=== PATIENT | male | born 1945 | race African-American/Black ===

== ENCOUNTER 2021-11-20 09:48 | Inpatient (IN) | payer OTHER ==
[2021-11-20 11:26] LABS: BASO % 1.1 % (0-2.0); EOS % 1.5 % (0-4.5); HEMATOCRIT 41.5 % (35.4-49); HEMOGLOBIN 13.8 GM/dL (11.7-16.9); LYMPH % 15.8 % (8-40); MCH 29.8 pg (25.7-33.7); MCHC 33.3 g/dl (32.0-35.9); MEAN CELL VOLUME 89.5 fl (80-96); MEAN PLT VOLUME 9.1 fl (7.5-11.1); MONO % 8.6 % (3.8-10.2); PLATELET COUNT 158 10^3/uL (134-434); RBC 4.64 M/mm3 (4.00-5.60); RDW 15.4 % (11.9-15.9); WHITE BLOOD COUNT 3.6 K/mm3 (4.0-10.0)
[2021-11-20 11:40] LABS: CHLORIDE 106 mmol/L (98-107); SODIUM 144 mmol/L (136-145)
[2021-11-20 11:44] LABS: ANION GAP 7 MMOL/L (8-16); BLOOD UREA NITROGEN 16.8 mg/dL (7-18); CALCIUM 8.9 mg/dL (8.5-10.1); CO2 31 mmol/L (21-32); GLUCOSE,RANDOM 126 mg/dL (74-106)
[2021-11-20 11:45] LABS: MAGNESIUM 2.1 mg/dL (1.8-2.4)
[2021-11-20 11:47] LABS: CREATININE 1.5 mg/dL (0.55-1.3); PHOSPHOROUS 3.5 mg/dL (2.5-4.9); SGPT/ALT 42 U/L (13-61)
[2021-11-20 11:48] LABS: SGOT/AST 27 U/L (15-37)
[2021-11-20 11:49] LABS: BILIRUBIN,TOTAL 0.5 mg/dL (0.2-1); TOT PROT 7.4 g/dl (6.4-8.2)
[2021-11-20 11:50] LABS: ALK PHOS 90 U/L (45-117)
[2021-11-20 12:22] LABS: EPI CELLS 6 /uL (0-25.1); HYALINE CASTS 1 /uL (0-3.1); PH,URINE 6.5 (5.0-8.0); URINE APPEARANCE CLEAR; URINE BACTERIA 11 /uL (0-1359); URINE BILIRUBIN NEGATIVE (NEGATIVE); URINE COLOR YELLOW; URINE GLUCOSE (UA) NEGATIVE (NEGATIVE); URINE KETONE NEGATIVE (NEGATIVE); URINE LEUK ESTERASE NEGATIVE (NEGATIVE); URINE NITRITE NEGATIVE (NEGATIVE); URINE PROTEIN 1+ (NEGATIVE); URINE RBC 15 /uL (0-23.9); URINE UROBILINOGEN 0.2 mg/dL (0.2-1.0); URINE WBC 7 /uL (0-25.8)
[2021-11-20] MEDS ORDERED: ASPIRIN 81 MG CHEWABLE TABLETS PO ONE (12:39)
[2021-11-20] MEDS ORDERED: ASPIRIN 81 MG CHEWABLE TABLETS ONE (13:00)
[2021-11-20] MEDS ORDERED: POTASSIUM CHLORIDE ORAL LIQUID 20 MEQ/15 ML PO ONE (14:18)
[2021-11-20] MEDS ORDERED: POTASSIUM CHLORIDE ORAL LIQUID 20 MEQ/15 ML ONE (14:42)
[2021-11-21] MEDS ORDERED: HEPARIN NA (PORCINE) 5,000 UNITS/ML 1ML VIAL ONE ×3 (00:55→13:14)
[2021-11-21] MEDS ORDERED: ATORVASTATIN CA 10 MG TABLET (FP) ONE (00:55)
[2021-11-21] MEDS: HEPARIN NA (PORCINE) 5,000 UNITS/ML 1ML VIAL SQ SCH ×4 (01:28→22:17)
[2021-11-21] MEDS: ATORVASTATIN CA 10 MG TABLET (FP) PO SCH ×2 (01:28→22:17)
[2021-11-21] MEDS ORDERED: ACETAMINOPHEN 325 MG TABLET (FP) ONE (06:47)
[2021-11-21] MEDS: ACETAMINOPHEN 325 MG TABLET (FP) PO PRN ×2 (06:50→22:17)
[2021-11-21 09:12] LABS: BASO % 0.3 % (0-2.0); HEMATOCRIT 36.7 % (35.4-49); HEMOGLOBIN 12.4 GM/dL (11.7-16.9); LYMPH % 8.9 % (8-40); MCHC 33.9 g/dl (32.0-35.9); MEAN CELL VOLUME 88.5 fl (80-96); MEAN PLT VOLUME 9.7 fl (7.5-11.1); MONO % 6.2 % (3.8-10.2); NEUT % 83.6 % (42.8-82.8); PLATELET COUNT 154 10^3/uL (134-434); RBC 4.14 M/mm3 (4.00-5.60); RDW 14.9 % (11.9-15.9); WHITE BLOOD COUNT 4.9 K/mm3 (4.0-10.0)
[2021-11-21 09:23] LABS: ALBUMIN 3.6 g/dl (3.4-5.0); BLOOD UREA NITROGEN 15.4 mg/dL (7-18); CALCIUM 8.1 mg/dL (8.5-10.1)
[2021-11-21 09:26] LABS: CREATININE 1.2 mg/dL (0.55-1.3)
[2021-11-21 09:28] LABS: BILIRUBIN,TOTAL 0.8 mg/dL (0.2-1); TOT PROT 6.7 g/dl (6.4-8.2)
[2021-11-21 09:29] LABS: CHOLESTEROL 151 mg/dL (50-200)
[2021-11-21 09:30] LABS: LDL CHOLESTEROL (ONLY SJRH) 82 mg/dL (5-100); TRIGLYCERIDES 154 mg/dL (0-150)
[2021-11-21 09:33] LABS: HDL CHOLESTEROL 31 mg/dL (40-60)
[2021-11-21] MEDS ORDERED: POTASSIUM CHLORIDE ORAL LIQUID 20 MEQ/15 ML PO ONE (13:24)
[2021-11-21] MEDS ORDERED: POTASSIUM CHLORIDE ORAL LIQUID 20 MEQ/15 ML ONE (13:51)
[2021-11-21] MEDS ORDERED: POTASSIUM CHLORIDE TABS 20 MEQ TABLET.ER (FP) PO ONE (16:45)
[2021-11-22] MEDS: HEPARIN NA (PORCINE) 5,000 UNITS/ML 1ML VIAL SQ SCH ×3 (05:45→21:26)
[2021-11-22] MEDS: ACETAMINOPHEN 325 MG TABLET (FP) PO PRN ×2 (05:46→09:58)
[2021-11-22 08:58] LABS: BASO % 0.3 % (0-2.0); HEMATOCRIT 37.9 % (35.4-49); HEMOGLOBIN 12.6 GM/dL (11.7-16.9); LYMPH % 10.3 % (8-40); MCH 29.7 pg (25.7-33.7); MCHC 33.2 g/dl (32.0-35.9); MEAN CELL VOLUME 89.6 fl (80-96); MONO % 4.1 % (3.8-10.2); NEUT % 84.3 % (42.8-82.8); PLATELET COUNT 156 10^3/uL (134-434); RBC 4.23 M/mm3 (4.00-5.60); RDW 15.1 % (11.9-15.9); WHITE BLOOD COUNT 5.9 K/mm3 (4.0-10.0)
[2021-11-22 09:19] LABS: CALCIUM 8.5 mg/dL (8.5-10.1)
[2021-11-22 09:23] LABS: BLOOD UREA NITROGEN 16.6 mg/dL (7-18)
[2021-11-22] MEDS ORDERED: POTASSIUM CHLORIDE TABS 20 MEQ TABLET.ER (FP) PO ONE (11:29)
[2021-11-22] MEDS: KCL 10 MEQ IVPB 10 MEQ/100 ML INFUS.BAG IVPB SCH ×3 (12:07→14:44)
[2021-11-22] MEDS: ATORVASTATIN CA 10 MG TABLET (FP) PO SCH (21:26)
[2021-11-23] MEDS: ACETAMINOPHEN 325 MG TABLET (FP) PO PRN ×2 (02:16→08:47)
[2021-11-23] MEDS: HEPARIN NA (PORCINE) 5,000 UNITS/ML 1ML VIAL SQ SCH ×3 (05:54→21:10)
[2021-11-23 08:35] LABS: BASO % 0.3 % (0-2.0); EOS % 3.3 % (0-4.5); HEMATOCRIT 37.8 % (35.4-49); HEMOGLOBIN 12.6 GM/dL (11.7-16.9); LYMPH % 16.1 % (8-40); MCH 29.8 pg (25.7-33.7); MCHC 33.3 g/dl (32.0-35.9); MEAN CELL VOLUME 89.4 fl (80-96); MEAN PLT VOLUME 9.3 fl (7.5-11.1); MONO % 5.8 % (3.8-10.2); NEUT % 74.5 % (42.8-82.8); PLATELET COUNT 130 10^3/uL (134-434); RBC 4.23 M/mm3 (4.00-5.60); WHITE BLOOD COUNT 4.4 K/mm3 (4.0-10.0)
[2021-11-23 09:02] LABS: ALBUMIN 3.4 g/dl (3.4-5.0); CALCIUM 8.4 mg/dL (8.5-10.1)
[2021-11-23 09:05] LABS: CREATININE 1.2 mg/dL (0.55-1.3)
[2021-11-23 09:07] LABS: BILIRUBIN,TOTAL 1.2 mg/dL (0.2-1); TOT PROT 6.5 g/dl (6.4-8.2)
[2021-11-23] MEDS ORDERED: LOSARTAN POTASSIUM 25 MG TABLET PO ONE (12:11)
[2021-11-23] MEDS: ASPIRIN 81 MG CHEWABLE TABLETS PO SCH (12:32)
[2021-11-23] MEDS: ATORVASTATIN CA 10 MG TABLET (FP) PO SCH (21:10)
[2021-11-24] MEDS: HEPARIN NA (PORCINE) 5,000 UNITS/ML 1ML VIAL SQ SCH ×3 (05:18→21:30)
[2021-11-24 07:18] LABS: BASO % 0.4 % (0-2.0); EOS % 4.1 % (0-4.5); HEMOGLOBIN 12.8 GM/dL (11.7-16.9); MCH 29.8 pg (25.7-33.7); MCHC 33.6 g/dl (32.0-35.9); MEAN CELL VOLUME 88.7 fl (80-96); MEAN PLT VOLUME 10.1 fl (7.5-11.1); MONO % 8.1 % (3.8-10.2); NEUT % 70.4 % (42.8-82.8); PLATELET COUNT 138 10^3/uL (134-434); RBC 4.29 M/mm3 (4.00-5.60); WHITE BLOOD COUNT 3.6 K/mm3 (4.0-10.0)
[2021-11-24 07:35] LABS: CALCIUM 8.3 mg/dL (8.5-10.1)
[2021-11-24 07:36] LABS: BLOOD UREA NITROGEN 16.8 mg/dL (7-18)
[2021-11-24 07:39] LABS: CREATININE 1.2 mg/dL (0.55-1.3)
[2021-11-24] MEDS: ACETAMINOPHEN 325 MG TABLET (FP) PO PRN (09:19)
[2021-11-24] MEDS: CARVEDILOL 3.125 MG TABLET (FP) PO SCH ×2 (09:19→21:30)
[2021-11-24] MEDS: ASPIRIN 81 MG CHEWABLE TABLETS PO SCH (09:19)
[2021-11-24] MEDS ORDERED: POTASSIUM CHLORIDE TABS 20 MEQ TABLET.ER (FP) PO ONE (11:14)
[2021-11-24] MEDS: DEXAMETHASONE 4 MG TABLET (FP) PO SCH (11:32)
[2021-11-24 11:59] LABS: MAGNESIUM 1.9 mg/dL (1.8-2.4)
[2021-11-24 12:03] LABS: PHOSPHOROUS 2.9 mg/dL (2.5-4.9)
[2021-11-24] MEDS ORDERED: REMDESIVIR 100 MG in SODIUM CHLORIDE 250 ML IVPB SCH (14:00)
[2021-11-24] MEDS ORDERED: REMDESIVIR 200 MG in SODIUM CHLORIDE 250 ML IVPB ONE (14:00)
[2021-11-24] MEDS: ATORVASTATIN CA 10 MG TABLET (FP) PO SCH (21:30)
[2021-11-25] MEDS: HEPARIN NA (PORCINE) 5,000 UNITS/ML 1ML VIAL SQ SCH ×4 (06:03→21:46)
[2021-11-25] MEDS: ASPIRIN 81 MG CHEWABLE TABLETS PO SCH (10:13)
[2021-11-25] MEDS: CARVEDILOL 3.125 MG TABLET (FP) PO SCH ×2 (10:13→21:46)
[2021-11-25] MEDS: DEXAMETHASONE 4 MG TABLET (FP) PO SCH (10:14)
[2021-11-25 12:56] LABS: BASO % 0.4 % (0-2.0); EOS % 0.1 % (0-4.5); HEMATOCRIT 37.1 % (35.4-49); HEMOGLOBIN 12.3 GM/dL (11.7-16.9); LYMPH % 18.7 % (8-40); MCH 29.5 pg (25.7-33.7); MCHC 33.2 g/dl (32.0-35.9); MEAN CELL VOLUME 88.9 fl (80-96); MEAN PLT VOLUME 10.7 fl (7.5-11.1); MONO % 11.7 % (3.8-10.2); NEUT % 69.1 % (42.8-82.8); PLATELET COUNT 163 10^3/uL (134-434); RBC 4.17 M/mm3 (4.00-5.60); RDW 15.2 % (11.9-15.9); WHITE BLOOD COUNT 4.2 K/mm3 (4.0-10.0)
[2021-11-25 13:24] LABS: CALCIUM 8.7 mg/dL (8.5-10.1)
[2021-11-25 13:25] LABS: BLOOD UREA NITROGEN 28.8 mg/dL (7-18)
[2021-11-25] MEDS ORDERED: ACETAMINOPHEN 325 MG TABLET (FP) PO PRN (14:09)
[2021-11-25] MEDS: REMDESIVIR 100 MG in SODIUM CHLORIDE 250 ML IVPB SCH (15:32)
[2021-11-25 17:59] LABS: CREATININE 1.3 mg/dL (0.55-1.3)
[2021-11-25] MEDS: ATORVASTATIN CA 10 MG TABLET (FP) PO SCH (21:46)
[2021-11-25] MEDS ORDERED: HEPARIN NA (PORCINE) 5,000 UNITS/ML 1ML VIAL SQ SCH (22:00)
[2021-11-26] MEDS: HEPARIN NA (PORCINE) 5,000 UNITS/ML 1ML VIAL SQ SCH ×3 (06:40→21:22)
[2021-11-26 10:38] LABS: BASO % 0.2 % (0-2.0); HEMATOCRIT 36.5 % (35.4-49); HEMOGLOBIN 12.6 GM/dL (11.7-16.9); MCH 30.7 pg (25.7-33.7); MCHC 34.6 g/dl (32.0-35.9); MEAN CELL VOLUME 88.8 fl (80-96); MEAN PLT VOLUME 10.1 fl (7.5-11.1); MONO % 8.5 % (3.8-10.2); NEUT % 77.3 % (42.8-82.8); PLATELET COUNT 191 10^3/uL (134-434); RBC 4.11 M/mm3 (4.00-5.60); RDW 15.3 % (11.9-15.9); WHITE BLOOD COUNT 6.1 K/mm3 (4.0-10.0)
[2021-11-26 11:09] LABS: CALCIUM 8.5 mg/dL (8.5-10.1)
[2021-11-26 11:10] LABS: BLOOD UREA NITROGEN 30.4 mg/dL (7-18)
[2021-11-26 11:13] LABS: CREATININE 1.2 mg/dL (0.55-1.3)
[2021-11-26] MEDS: CARVEDILOL 3.125 MG TABLET (FP) PO SCH ×2 (11:59→21:22)
[2021-11-26] MEDS: ASPIRIN 81 MG CHEWABLE TABLETS PO SCH (11:59)
[2021-11-26] MEDS: DEXAMETHASONE 4 MG TABLET (FP) PO SCH (12:00)
[2021-11-26] MEDS: REMDESIVIR 100 MG in SODIUM CHLORIDE 250 ML IVPB SCH (15:58)
[2021-11-26] MEDS: ATORVASTATIN CA 10 MG TABLET (FP) PO SCH (21:23)
[2021-11-27] MEDS: HEPARIN NA (PORCINE) 5,000 UNITS/ML 1ML VIAL SQ SCH ×3 (05:26→21:12)
[2021-11-27] MEDS: ASPIRIN 81 MG CHEWABLE TABLETS PO SCH (09:07)
[2021-11-27] MEDS: DEXAMETHASONE 4 MG TABLET (FP) PO SCH (09:07)
[2021-11-27] MEDS: CARVEDILOL 3.125 MG TABLET (FP) PO SCH ×2 (09:08→21:21)
[2021-11-27] MEDS: LOSARTAN POTASSIUM 25 MG TABLET PO SCH ×2 (11:00→11:58)
[2021-11-27] MEDS: REMDESIVIR 100 MG in SODIUM CHLORIDE 250 ML IVPB SCH (14:01)
[2021-11-27] MEDS: ATORVASTATIN CA 10 MG TABLET (FP) PO SCH (21:12)
[2021-11-28] MEDS: HEPARIN NA (PORCINE) 5,000 UNITS/ML 1ML VIAL SQ SCH ×3 (05:26→21:30)
[2021-11-28 09:06] VITALS: BMI 22.4
[2021-11-28] MEDS: DEXAMETHASONE 4 MG TABLET (FP) PO SCH (09:29)
[2021-11-28] MEDS: LOSARTAN POTASSIUM 25 MG TABLET PO SCH (09:29)
[2021-11-28] MEDS: ASPIRIN 81 MG CHEWABLE TABLETS PO SCH (09:29)
[2021-11-28] MEDS: CARVEDILOL 3.125 MG TABLET (FP) PO SCH ×2 (09:30→21:32)
[2021-11-28] MEDS: REMDESIVIR 100 MG in SODIUM CHLORIDE 250 ML IVPB SCH (14:15)
[2021-11-28] MEDS: ATORVASTATIN CA 10 MG TABLET (FP) PO SCH (21:31)
[2021-11-29] MEDS: HEPARIN NA (PORCINE) 5,000 UNITS/ML 1ML VIAL SQ SCH ×3 (05:24→22:18)
[2021-11-29] MEDS: ASPIRIN 81 MG CHEWABLE TABLETS PO SCH (09:50)
[2021-11-29] MEDS: DEXAMETHASONE 4 MG TABLET (FP) PO SCH (09:50)
[2021-11-29] MEDS: LOSARTAN POTASSIUM 25 MG TABLET PO SCH (09:50)
[2021-11-29] MEDS: CARVEDILOL 3.125 MG TABLET (FP) PO SCH ×2 (09:55→22:18)
[2021-11-29 11:46] LABS: BASO % 0.3 % (0-2.0); EOS % 0.5 % (0-4.5); HEMATOCRIT 36.5 % (35.4-49); HEMOGLOBIN 12.8 GM/dL (11.7-16.9); LYMPH % 18.5 % (8-40); MCHC 34.9 g/dl (32.0-35.9); MEAN CELL VOLUME 88.8 fl (80-96); MEAN PLT VOLUME 10.3 fl (7.5-11.1); MONO % 12.5 % (3.8-10.2); NEUT % 68.2 % (42.8-82.8); PLATELET COUNT 255 10^3/uL (134-434); RBC 4.11 M/mm3 (4.00-5.60); WHITE BLOOD COUNT 8.4 K/mm3 (4.0-10.0)
[2021-11-29 12:01] LABS: CALCIUM 8.9 mg/dL (8.5-10.1)
[2021-11-29 12:02] LABS: BLOOD UREA NITROGEN 27.3 mg/dL (7-18)
[2021-11-29 12:05] LABS: CREATININE 1.2 mg/dL (0.55-1.3)
[2021-11-29] MEDS: ATORVASTATIN CA 10 MG TABLET (FP) PO SCH (22:18)
[2021-11-30 01:46] VITALS: TEMP 97.8
[2021-11-30] MEDS: HEPARIN NA (PORCINE) 5,000 UNITS/ML 1ML VIAL SQ SCH (05:26)
[2021-11-30 05:43] VITALS: BP 165/77; PULSE 48; RESP 18
[2021-11-30] MEDS: LOSARTAN POTASSIUM 25 MG TABLET PO SCH (09:54)
[2021-11-30] MEDS: DEXAMETHASONE 4 MG TABLET (FP) PO SCH (09:54)
[2021-11-30] MEDS: ASPIRIN 81 MG CHEWABLE TABLETS PO SCH (09:54)
[2021-11-30] MEDS: CARVEDILOL 3.125 MG TABLET (FP) PO SCH (09:55)
== END 2021-11-30 11:36 | disposition home or self-care (01) | DRG 178 ==
LOC: JER 09:48 → JERBED 16:52 → J4S 11-21 22:11 → OBSVTOIN 11-24 16:31 → J5S 11-25 13:13
PROVIDERS: ADMIT Internal Medicine; ATTEND Internal Medicine
PROC: XW033E5 Introduction of Remdesivir Anti-infective into Peripheral Vein, Percutaneous Approach, New Technology Group 5 (ICD-10-PCS; principal; 2021-11-29)
DX: U07.1 COVID-19 (principal); I24.8 Other forms of acute ischemic heart disease; D69.6 Thrombocytopenia, unspecified; I11.9 Hypertensive heart disease without heart failure; I08.1 Rheumatic disorders of both mitral and tricuspid valves; E78.5 Hyperlipidemia, unspecified; E78.00 Pure hypercholesterolemia, unspecified; I25.10 Atherosclerotic heart disease of native coronary artery without angina pectoris; N40.0 Benign prostatic hyperplasia without lower urinary tract symptoms; E87.6 Hypokalemia
CPT/HCPCS: 36415; 70450-TC; 71045-TC-FY; 71046-TC-FY; 80048; 80053; 80061; 81003; 82962; 83036; 83735; 83880; 84100; 84443; 84484; 85025; 86140; 87086; 93005; 93010; 93306-TC; 93880-TC; 94761; 97116-GP; 97161-GP; 99285-25; C9399; C9803-CS; G0378; J1644; U0003; U0005

== ENCOUNTER 2021-12-12 19:49 | Observation (INO) | payer OTHER ==
[2021-12-12 19:53] VITALS: BMI 29.1
[2021-12-12 22:45] LABS: INR 1.1 (0.83-1.09); PROTHROMBIN TIME (PATIENT) 12.7 SEC (9.7-13.0)
[2021-12-12 22:51] LABS: BASO % 0.3 % (0-2.0); HEMATOCRIT 37.1 % (35.4-49); HEMOGLOBIN 12.7 GM/dL (11.7-16.9); LYMPH % 14.4 % (8-40); MCH 31.1 pg (25.7-33.7); MCHC 34.3 g/dl (32.0-35.9); MEAN CELL VOLUME 90.6 fl (80-96); MEAN PLT VOLUME 8.9 fl (7.5-11.1); MONO % 12.1 % (3.8-10.2); NEUT % 68.2 % (42.8-82.8); PLATELET COUNT 166 10^3/uL (134-434); RBC 4.09 M/mm3 (4.00-5.60); RDW 15.4 % (11.9-15.9); WHITE BLOOD COUNT 4.7 K/mm3 (4.0-10.0)
[2021-12-12] MEDS ORDERED: MAGNESIUM SULF 50% (8.12 MEQ/2 ML-1 GM VIAL) IVPB ONE (22:54)
[2021-12-12 22:55] LABS: ALBUMIN 3.4 g/dl (3.4-5.0); BLOOD UREA NITROGEN 23.7 mg/dL (7-18)
[2021-12-12 22:58] LABS: CREATININE 1.4 mg/dL (0.55-1.3)
[2021-12-12 23:00] LABS: BILIRUBIN,TOTAL 0.4 mg/dL (0.2-1); TOT PROT 6.1 g/dl (6.4-8.2)
[2021-12-12] MEDS ORDERED: MAGNESIUM SULFATE IN WATER 2 GM/50 ML IVPB IVPB ONE (23:31)
[2021-12-13 00:59] LABS: PH,URINE 6.5 (5.0-8.0); URINE APPEARANCE CLEAR; URINE BILIRUBIN NEGATIVE (NEGATIVE); URINE COLOR YELLOW; URINE GLUCOSE (UA) NEGATIVE (NEGATIVE); URINE KETONE NEGATIVE (NEGATIVE); URINE LEUK ESTERASE NEGATIVE (NEGATIVE); URINE NITRITE NEGATIVE (NEGATIVE); URINE PROTEIN NEGATIVE (NEGATIVE)
[2021-12-13 08:18] LABS: BASO % 0.5 % (0-2.0); EOS % 6.3 % (0-4.5); HEMATOCRIT 38.2 % (35.4-49); HEMOGLOBIN 12.8 GM/dL (11.7-16.9); LYMPH % 19.9 % (8-40); MCH 30.5 pg (25.7-33.7); MCHC 33.6 g/dl (32.0-35.9); MEAN CELL VOLUME 90.8 fl (80-96); MEAN PLT VOLUME 8.9 fl (7.5-11.1); MONO % 11.3 % (3.8-10.2); PLATELET COUNT 161 10^3/uL (134-434); RBC 4.21 M/mm3 (4.00-5.60); RDW 15.2 % (11.9-15.9); WHITE BLOOD COUNT 4.8 K/mm3 (4.0-10.0)
[2021-12-13 08:54] LABS: CALCIUM 8.9 mg/dL (8.5-10.1)
[2021-12-13 08:55] LABS: ALBUMIN 3.5 g/dl (3.4-5.0); BLOOD UREA NITROGEN 18.8 mg/dL (7-18)
[2021-12-13 08:59] LABS: BILIRUBIN,TOTAL 0.5 mg/dL (0.2-1); TOT PROT 6.2 g/dl (6.4-8.2)
[2021-12-13] MEDS ORDERED: APIXABAN 5 MG TABLET ONE (20:09)
[2021-12-14] MEDS ORDERED: POTASSIUM CHLORIDE ORAL LIQUID 20 MEQ/15 ML PO ONE (00:20)
[2021-12-14 08:15] LABS: BASO % 0.7 % (0-2.0); EOS % 7.6 % (0-4.5); HEMATOCRIT 39.2 % (35.4-49); HEMOGLOBIN 13.3 GM/dL (11.7-16.9); LYMPH % 21.7 % (8-40); MCH 30.5 pg (25.7-33.7); MCHC 33.9 g/dl (32.0-35.9); MEAN PLT VOLUME 8.1 fl (7.5-11.1); MONO % 15.5 % (3.8-10.2); NEUT % 54.5 % (42.8-82.8); PLATELET COUNT 130 10^3/uL (134-434); RBC 4.36 M/mm3 (4.00-5.60); RDW 15.3 % (11.9-15.9); WHITE BLOOD COUNT 4.4 K/mm3 (4.0-10.0)
[2021-12-14 09:49] LABS: ALBUMIN 3.2 g/dl (3.4-5.0); BLOOD UREA NITROGEN 18.7 mg/dL (7-18); CALCIUM 8.5 mg/dL (8.5-10.1)
[2021-12-14 09:52] LABS: CREATININE 0.9 mg/dL (0.55-1.3)
[2021-12-14 09:54] LABS: BILIRUBIN,TOTAL 0.4 mg/dL (0.2-1); TOT PROT 6.1 g/dl (6.4-8.2)
[2021-12-14] MEDS: ASPIRIN 81 MG CHEWABLE TABLETS PO SCH (10:10)
[2021-12-14] MEDS: LOSARTAN POTASSIUM 25 MG TABLET PO SCH (10:10)
[2021-12-14] MEDS: CARVEDILOL 3.125 MG TABLET (FP) PO SCH ×2 (10:10→21:39)
[2021-12-14] MEDS: MIRTAZAPINE 15 MG TABLET (FP) PO SCH (21:38)
[2021-12-14] MEDS: ATORVASTATIN CA 10 MG TABLET (FP) PO SCH (21:38)
[2021-12-15 08:22] LABS: BASO % 0.6 % (0-2.0); EOS % 5.3 % (0-4.5); HEMATOCRIT 36.9 % (35.4-49); HEMOGLOBIN 12.6 GM/dL (11.7-16.9); MCH 31.1 pg (25.7-33.7); MCHC 34.1 g/dl (32.0-35.9); MEAN CELL VOLUME 91.2 fl (80-96); MEAN PLT VOLUME 8.9 fl (7.5-11.1); MONO % 9.5 % (3.8-10.2); NEUT % 69.6 % (42.8-82.8); PLATELET COUNT 152 10^3/uL (134-434); RBC 4.05 M/mm3 (4.00-5.60); RDW 15.7 % (11.9-15.9); WHITE BLOOD COUNT 6.4 K/mm3 (4.0-10.0)
[2021-12-15 08:46] LABS: ALBUMIN 3.1 g/dl (3.4-5.0); CALCIUM 8.6 mg/dL (8.5-10.1)
[2021-12-15 08:47] LABS: BLOOD UREA NITROGEN 23.8 mg/dL (7-18)
[2021-12-15 08:49] LABS: CREATININE 1.2 mg/dL (0.55-1.3)
[2021-12-15 08:51] LABS: BILIRUBIN,TOTAL 0.4 mg/dL (0.2-1); TOT PROT 5.8 g/dl (6.4-8.2)
[2021-12-15] MEDS: LOSARTAN POTASSIUM 25 MG TABLET PO SCH (10:05)
[2021-12-15] MEDS: ASPIRIN 81 MG CHEWABLE TABLETS PO SCH (10:05)
[2021-12-15] MEDS: CARVEDILOL 3.125 MG TABLET (FP) PO SCH ×2 (10:05→22:06)
[2021-12-15] MEDS: MIRTAZAPINE 15 MG TABLET (FP) PO SCH (22:06)
[2021-12-15] MEDS: ATORVASTATIN CA 10 MG TABLET (FP) PO SCH (22:06)
[2021-12-16] MEDS: CARVEDILOL 3.125 MG TABLET (FP) PO SCH ×2 (10:26→21:05)
[2021-12-16] MEDS: LOSARTAN POTASSIUM 25 MG TABLET PO SCH (10:26)
[2021-12-16] MEDS: ASPIRIN 81 MG CHEWABLE TABLETS PO SCH (10:26)
[2021-12-16] MEDS: MIRTAZAPINE 15 MG TABLET (FP) PO SCH (21:06)
[2021-12-16] MEDS: ATORVASTATIN CA 10 MG TABLET (FP) PO SCH (21:06)
[2021-12-17] MEDS: LOSARTAN POTASSIUM 25 MG TABLET PO SCH (09:34)
[2021-12-17] MEDS: CARVEDILOL 3.125 MG TABLET (FP) PO SCH ×2 (09:34→21:10)
[2021-12-17] MEDS: ASPIRIN 81 MG CHEWABLE TABLETS PO SCH (09:34)
[2021-12-17 14:47] VITALS: RESP 18
[2021-12-17] MEDS: MIRTAZAPINE 15 MG TABLET (FP) PO SCH (21:10)
[2021-12-17] MEDS: ATORVASTATIN CA 10 MG TABLET (FP) PO SCH (21:10)
[2021-12-18 08:52] VITALS: BP 134/70; PULSE 66; TEMP 98.9
[2021-12-18] MEDS: LOSARTAN POTASSIUM 25 MG TABLET PO SCH (09:09)
[2021-12-18] MEDS: ASPIRIN 81 MG CHEWABLE TABLETS PO SCH (09:09)
[2021-12-18] MEDS: CARVEDILOL 3.125 MG TABLET (FP) PO SCH (09:09)
== END 2021-12-18 13:34 | disposition short-term general hospital (02) ==
LOC: JER 19:49 → INTOOBSV 12-13 00:20 → UNDOADMOB 12-13 00:20 → JERBED 12-13 00:20 → J4S 12-14 00:55 → J6S 12-16 18:26
PROVIDERS: ADMIT Internal Medicine; ATTEND Internal Medicine
PROC: 3E033GC Introduction of Other Therapeutic Substance into Peripheral Vein, Percutaneous Approach (ICD-10-PCS; principal; 2021-12-13)
DX: I25.10 Atherosclerotic heart disease of native coronary artery without angina pectoris (principal); R55 Syncope and collapse; E78.5 Hyperlipidemia, unspecified; R41.0 Disorientation, unspecified; N40.0 Benign prostatic hyperplasia without lower urinary tract symptoms; H40.9 Unspecified glaucoma; F03.90 Unspecified dementia, unspecified severity, without behavioral disturbance, psychotic disturbance, mood disturbance, and anxiety; U07.1 COVID-19; R00.1 Bradycardia, unspecified; R94.31 Abnormal electrocardiogram [ECG] [EKG]; N17.9 Acute kidney failure, unspecified; F09 Unspecified mental disorder due to known physiological condition; D69.6 Thrombocytopenia, unspecified; E87.6 Hypokalemia
CPT/HCPCS: 0241U-QW; 36415; 70450-TC; 71045-TC-FY; 72125-TC; 80053; 81003; 82550; 82962; 83735; 84484; 85025; 85610; 87086; 93005; 93010; 96374; 97116-GP; 97161-GP; 99285-25; C9803-CS; G0378; U0003; U0005